=== PATIENT | male | born 1940 | race African-American/Black ===

== ENCOUNTER 2020-02-16 12:30 | Emergency (ER) | payer MEDICARE, BC ==
[~2020-02-16] VITALS: Ht 182.9 cm; Wt 73.0 kg
[2020-02-16 15:46] LABS: BASOPHILS % 0.5 % (0.0-2.0); CHLORIDE 101 mEq/L (98-107); HEMATOCRIT. 42.1 % (42.0-52.0); HEMOGLOBIN. 14.3 g/dL (14.0-18.0); LYMPHOCYTES % 20.9 % (20.0-50.0); MEAN CORPUSCULAR HEMOGLOBIN 31.9 pg (28.0-32.0); MEAN CORPUSCULAR VOLUME 94.2 fL (80.0-94.0); MEAN PLATELET VOLUME 8.5 fl (7.4-10.4); MONOCYTES % 7.5 % (2.0-8.0); NEUTROPHILS % 70.1 % (40.0-76.0); PLATELET 124 x1000/uL (130-400); RED BLOOD CELL COUNT 4.47 mill/uL (4.7-6.1); RED CELL DISTRIBUTION WIDTH 16.5 % (11.6-14.6)
[2020-02-16 15:52] LABS: PARTIAL THROMBOPLASTIN TIME 27.6 sec (23.4-31.0); PROTHROMBIN TIME 10.5 sec (9.6-11.0)
[2020-02-16 18:47] VITALS: BP 150/77
== END 2020-02-16 18:47 | disposition home or self-care (01) ==
LOC: ER 12:30
DX: R04.0 Epistaxis (principal); I10 Essential (primary) hypertension; J45.909 Unspecified asthma, uncomplicated
CPT/HCPCS: 36415; 80048; 85025; 86850; 86900; 93005; 99284

== ENCOUNTER 2020-02-29 22:19 | Emergency (ER) | payer MEDICARE, BC ==
[~2020-02-29] VITALS: Ht 182.9 cm; Wt 62.3 kg
[2020-02-29 23:43] LABS: HEMATOCRIT 39.1 % (42.0-52.0); HEMOGLOBIN 13.3 g/dL (14.0-18.0); MEAN CORPUSCULAR HEMOGLOBIN 32.7 pg (28.0-32.0); MEAN CORPUSCULAR VOLUME 96.4 fL (80.0-94.0); PLATELET 138 x1000/uL (130-400); RED BLOOD CELL COUNT 4.05 mill/uL (4.7-6.1); RED CELL DISTRIBUTION WIDTH 17.9 % (11.6-14.6)
[2020-02-29 23:53] LABS: CHLORIDE 102 mEq/L (98-107)
[2020-03-01 07:30] VITALS: BP 138/71
== END 2020-03-01 08:30 | disposition home or self-care (01) ==
LOC: ER 22:19
DX: K62.5 Hemorrhage of anus and rectum (principal); D64.9 Anemia, unspecified; R03.0 Elevated blood-pressure reading, without diagnosis of hypertension; J45.909 Unspecified asthma, uncomplicated
CPT/HCPCS: 36415; 80053; 85027; 86850; 86900; 93005; 99285

== ENCOUNTER 2021-05-17 15:49 | Inpatient (IN) | payer MEDICARE, BC ==
[~2021-05-17] VITALS: Ht 167.6 cm; Wt 49.9 kg
[2021-05-17] MEDS ORDERED: SODIUM CHLORIDE 0.9% 1,000 ML IV ONE (16:30)
[2021-05-17 17:10] LABS: BASOPHILS % 0.1 % (0.0-2.0); EOSINOPHILS % 0.5 % (0.0-5.0); HEMATOCRIT. 42.3 % (42.0-52.0); HEMOGLOBIN. 13.1 g/dL (14.0-18.0); MEAN CORPUSCULAR HEMOGLOBIN 28.4 pg (28.0-32.0); MEAN CORPUSCULAR VOLUME 91.4 fL (80.0-94.0); MEAN PLATELET VOLUME 11.2 fl (7.4-10.4); MONOCYTES % 6.4 % (2.0-8.0); PLATELET 241 x1000/uL (130-400); RED BLOOD CELL COUNT 4.63 mill/uL (4.7-6.1); RED CELL DISTRIBUTION WIDTH 18.1 % (11.6-14.6)
[2021-05-17 17:47] LABS: CLARITY URINE CLEAR (CLEAR); COLOR URINE YELLOW (YELLOW); KETONES URINE NEGATIVE (NEGATIVE); LEUKOCYTE ESTERASE URINE NEGATIVE (NEGATIVE); NITRITE URINE NEGATIVE (NEGATIVE); OCCULT BLOOD URINE 2+ (NEGATIVE); PROTEIN URINE TRACE (NEGATIVE); SPECIFIC GRAVITY URINE 1.032 (1.005-1.030); UROBILINOGEN URINE 0.2 E.U./dL (0.2-1.0)
[2021-05-17] MEDS ORDERED: CEFTRIAXONE 1 G PREMIX 50 ML IV ONE (18:00)
[2021-05-17 18:13] LABS: *AMPHETAMINES SCREEN URINE NEGATIVE (NEGATIVE); *BARBITURATES SCREEN URINE NEGATIVE (NEGATIVE); *BENZODIAZEPINES SCREEN URINE PRESUMTIVE POSITIVE (NEGATIVE); *COCAINE SCREEN URINE NEGATIVE (NEGATIVE); PHENCYCLIDINE URINE SCREEN NEGATIVE (NEGATIVE)
[2021-05-17 18:14] LABS: CANNABINOID URINE SCREEN NEGATIVE (NEGATIVE)
[2021-05-17 18:19] LABS: METHADONE URINE SCREEN NEGATIVE (NEGATIVE)
[2021-05-17 18:29] LABS: OPIATES URINE SCREEN NEGATIVE (NEGATIVE)
[2021-05-17] MEDS ORDERED: MAGNESIUM/ALUMINUM HYDROXIDE/SIMETHICONE 30ML UDC PO PRN (21:15)
[2021-05-17] MEDS ORDERED: ACETAMINOPHEN 325MG TABLET PO PRN ×2 (21:15)
[2021-05-17] MEDS ORDERED: ONDANSETRON HCL 4MG/2ML INJ IV PRN (21:15)
[2021-05-17] MEDS ORDERED: GUAIFENESIN 200MG/10ML SUGAR FREE UDC PO PRN (21:15)
[2021-05-17] MEDS ORDERED: CLONIDINE 0.1MG TABLET PO PRN (21:15)
[2021-05-17] MEDS ORDERED: DEXTROSE 50% WATER 50ML SYRINGE IV PRN (21:15)
[2021-05-17 21:18] LABS: CHLORIDE 120 mEq/L (98-107)
[2021-05-17 21:24] LABS: ETHANOL BLOOD < 10 mg/dL
[2021-05-17] MEDS ORDERED: INSULIN REGULAR (HUMULIN R) 300UNITS/3ML VIAL SUBCUT NR (22:25)
[2021-05-17] MEDS ORDERED: SODIUM CHLORIDE 0.9% 1,000 ML IV NR (22:27)
[2021-05-17] MEDS: ENOXAPARIN 40MG/0.4ML SYR SUBCUT SCH (22:59)
[2021-05-18 05:36] LABS: BASOPHILS % 0.5 % (0.0-2.0); EOSINOPHILS % 4.1 % (0.0-5.0); HEMATOCRIT. 40.6 % (42.0-52.0); HEMOGLOBIN. 13.2 g/dL (14.0-18.0); LYMPHOCYTES % 21.6 % (20.0-50.0); MEAN CORPUSCULAR HEMOGLOBIN 29.4 pg (28.0-32.0); MEAN CORPUSCULAR VOLUME 90.2 fL (80.0-94.0); MEAN PLATELET VOLUME 10.5 fl (7.4-10.4); MONOCYTES % 6.5 % (2.0-8.0); NEUTROPHILS % 67.3 % (40.0-76.0); PLATELET 228 x1000/uL (130-400); RED CELL DISTRIBUTION WIDTH 17.9 % (11.6-14.6)
[2021-05-18 05:39] LABS: CHLORIDE 127 mEq/L (98-107)
[2021-05-18 05:46] LABS: PHOSPHORUS 2.8 mg/dL (2.5-4.9)
[2021-05-18] MEDS: DEXTROSE 5% WATER 1,000 ML IV SCH (06:40)
[2021-05-18] MEDS: INSULIN LISPRO 100 UNITS/ML SUBCUT SCH ×3 (08:20→19:12)
[2021-05-18] MEDS: BLOOD SUGAR DIAGNOSTIC STRIP TEST SCH ×3 (09:08→17:49)
[2021-05-18] MEDS ORDERED: ALBUTEROL 6.7GM HFA INHALER ORI PRN (13:00)
[2021-05-18] MEDS: DEXAMETHASONE 10 MG/ML VIAL IV SCH (13:38)
[2021-05-18 17:06] LABS: C REACTIVE PROTEIN QUANT 7.1 mg/L (0.0-3.0)
[2021-05-19] MEDS: DEXTROSE 5% WATER 1,000 ML IV SCH ×3 (02:22→23:06)
[2021-05-19] MEDS: ENOXAPARIN 40MG/0.4ML SYR SUBCUT SCH ×2 (02:24→23:05)
[2021-05-19 05:10] LABS: CHLORIDE 121 mEq/L (98-107)
[2021-05-19 05:16] LABS: PHOSPHORUS 2.8 mg/dL (2.5-4.9)
[2021-05-19 06:11] LABS: BASOPHILS % 0.5 % (0.0-2.0); EOSINOPHILS % 0.6 % (0.0-5.0); HEMATOCRIT. 38.5 % (42.0-52.0); HEMOGLOBIN. 12.6 g/dL (14.0-18.0); MEAN CORPUSCULAR HEMOGLOBIN 29.1 pg (28.0-32.0); MEAN CORPUSCULAR VOLUME 88.6 fL (80.0-94.0); MEAN PLATELET VOLUME 10.8 fl (7.4-10.4); MONOCYTES % 5.3 % (2.0-8.0); NEUTROPHILS % 77.6 % (40.0-76.0); PLATELET 225 x1000/uL (130-400); RED BLOOD CELL COUNT 4.34 mill/uL (4.7-6.1); RED CELL DISTRIBUTION WIDTH 17.4 % (11.6-14.6)
[2021-05-19] MEDS: BLOOD SUGAR DIAGNOSTIC STRIP TEST SCH ×5 (09:29→21:00)
[2021-05-19] MEDS: DEXAMETHASONE 10 MG/ML VIAL IV SCH (09:30)
[2021-05-19] MEDS: INSULIN LISPRO 100 UNITS/ML SUBCUT SCH ×2 (09:35→14:08)
[2021-05-19 20:00] VITALS: BP 116/67
[2021-05-19 22:00] VITALS: BP 116/67
[2021-05-19 23:54] VITALS: BP 100/54
[2021-05-20 04:00] VITALS: BP 120/69
[2021-05-20] MEDS ORDERED: ATOR10TA69 PO (04:29)
[2021-05-20] MEDS ORDERED: FURO-152 PO (04:30)
[2021-05-20] MEDS ORDERED: FOLI-43 PO (04:30)
[2021-05-20] MEDS ORDERED: LISI20TA31 PO (04:31)
[2021-05-20] MEDS ORDERED: AMLO5TAB4 PO (04:31)
[2021-05-20] MEDS ORDERED: P20 PO (04:32)
[2021-05-20] MEDS ORDERED: BUDE6.9H INH (04:33)
[2021-05-20 06:32] LABS: BASOPHILS % 0.5 % (0.0-2.0); EOSINOPHILS % 0.8 % (0.0-5.0); HEMATOCRIT. 33.8 % (42.0-52.0); HEMOGLOBIN. 11.3 g/dL (14.0-18.0); LYMPHOCYTES % 22.4 % (20.0-50.0); MEAN CORPUSCULAR HEMOGLOBIN 29.5 pg (28.0-32.0); MEAN CORPUSCULAR VOLUME 88.7 fL (80.0-94.0); MEAN PLATELET VOLUME 11.8 fl (7.4-10.4); MONOCYTES % 6.7 % (2.0-8.0); NEUTROPHILS % 69.6 % (40.0-76.0); PLATELET 151 x1000/uL (130-400); RED BLOOD CELL COUNT 3.81 mill/uL (4.7-6.1); RED CELL DISTRIBUTION WIDTH 17.4 % (11.6-14.6)
[2021-05-20] MEDS: BLOOD SUGAR DIAGNOSTIC STRIP TEST SCH ×4 (06:42→20:49)
[2021-05-20 07:35] LABS: CHLORIDE 116 mEq/L (98-107)
[2021-05-20] MEDS: INSULIN LISPRO 100 UNITS/ML SUBCUT SCH ×4 (08:07→20:59)
[2021-05-20] MEDS: DEXTROSE 5% WATER 1,000 ML IV SCH ×2 (08:07→20:48)
[2021-05-20] MEDS: DEXAMETHASONE 10 MG/ML VIAL IV SCH ×2 (08:08→08:11)
[2021-05-20 10:45] LABS: PHOSPHORUS 2.4 mg/dL (2.5-4.9)
[2021-05-20 12:00] VITALS: BP 93/54
[2021-05-20 16:00] VITALS: BP 102/58
[2021-05-20 20:00] VITALS: BP 98/59
[2021-05-20] MEDS: ENOXAPARIN 40MG/0.4ML SYR SUBCUT SCH (20:48)
[2021-05-20] MEDS ORDERED: SODIUM CHLORIDE 0.45% 1,000 ML IV SCH (21:45)
[2021-05-21] VITALS: BP 100/57
[2021-05-21 05:51] VITALS: BP 106/46
[2021-05-21] MEDS: BLOOD SUGAR DIAGNOSTIC STRIP TEST SCH ×4 (07:40→20:27)
[2021-05-21] MEDS: INSULIN LISPRO 100 UNITS/ML SUBCUT SCH ×4 (08:10→20:26)
[2021-05-21] MEDS: DEXAMETHASONE 10 MG/ML VIAL IV SCH (09:40)
[2021-05-21 12:00] VITALS: BP 99/57
[2021-05-21 16:00] VITALS: BP 92/69
[2021-05-21 20:00] VITALS: BP 94/64
[2021-05-21] MEDS: ENOXAPARIN 40MG/0.4ML SYR SUBCUT SCH (20:26)
[2021-05-22] VITALS: BP 108/54
[2021-05-22 04:00] VITALS: BP 111/69
[2021-05-22] MEDS: BLOOD SUGAR DIAGNOSTIC STRIP TEST SCH ×4 (07:40→21:22)
[2021-05-22 08:00] VITALS: BP 115/57
[2021-05-22] MEDS: INSULIN LISPRO 100 UNITS/ML SUBCUT SCH ×4 (08:10→21:21)
[2021-05-22] MEDS: DEXAMETHASONE 10 MG/ML VIAL IV SCH (08:44)
[2021-05-22] MEDS: INSULIN GLARGINE UD 100 UNITS/ML SYR SUBCUT SCH (11:11)
[2021-05-22 12:00] VITALS: BP 100/56
[2021-05-22 16:00] VITALS: BP 100/69
[2021-05-22 20:00] VITALS: BP 135/77
[2021-05-22] MEDS: ENOXAPARIN 40MG/0.4ML SYR SUBCUT SCH (21:22)
[2021-05-23 00:17] VITALS: BP 127/67
[2021-05-23 04:00] VITALS: BP 122/63
[2021-05-23] MEDS: BLOOD SUGAR DIAGNOSTIC STRIP TEST SCH ×4 (07:40→21:37)
[2021-05-23 08:00] VITALS: BP 112/68
[2021-05-23] MEDS: INSULIN LISPRO 100 UNITS/ML SUBCUT SCH ×4 (08:10→21:00)
[2021-05-23] MEDS ORDERED: ALBU6.7H9 ORI (08:48)
[2021-05-23] MEDS ORDERED: MED4 MT (08:48)
[2021-05-23] MEDS ORDERED: LANTUSUD SUBCUT (08:48)
[2021-05-23] MEDS: DEXAMETHASONE 10 MG/ML VIAL IV SCH (09:03)
[2021-05-23 09:28] LABS: CHLORIDE 110 mEq/L (98-107)
[2021-05-23 09:36] LABS: PHOSPHORUS 2.6 mg/dL (2.5-4.9)
[2021-05-23] MEDS: INSULIN GLARGINE UD 100 UNITS/ML SYR SUBCUT SCH (11:07)
[2021-05-23 12:00] VITALS: BP 102/67
[2021-05-23 12:18] LABS: BASOPHILS % 0.1 % (0.0-2.0); EOSINOPHILS % 0.6 % (0.0-5.0); HEMATOCRIT. 31.9 % (42.0-52.0); HEMOGLOBIN. 10.6 g/dL (14.0-18.0); LYMPHOCYTES % 9.3 % (20.0-50.0); MEAN CORPUSCULAR HEMOGLOBIN 29.1 pg (28.0-32.0); MEAN CORPUSCULAR VOLUME 87.5 fL (80.0-94.0); MEAN PLATELET VOLUME 11.2 fl (7.4-10.4); MONOCYTES % 2.7 % (2.0-8.0); NEUTROPHILS % 87.3 % (40.0-76.0); PLATELET 165 x1000/uL (130-400); RED BLOOD CELL COUNT 3.64 mill/uL (4.7-6.1); RED CELL DISTRIBUTION WIDTH 17.4 % (11.6-14.6)
[2021-05-23 16:00] VITALS: BP 107/65
[2021-05-23 20:00] VITALS: BP 122/66
[2021-05-23] MEDS: ENOXAPARIN 40MG/0.4ML SYR SUBCUT SCH (21:58)
[2021-05-24] VITALS: BP 119/75
[2021-05-24 04:00] VITALS: BP 122/71
[2021-05-24] MEDS: BLOOD SUGAR DIAGNOSTIC STRIP TEST SCH ×4 (07:02→20:43)
[2021-05-24 10:52] LABS: BASOPHILS % 0.2 % (0.0-2.0); HEMATOCRIT. 34.9 % (42.0-52.0); HEMOGLOBIN. 11.8 g/dL (14.0-18.0); MEAN CORPUSCULAR HEMOGLOBIN 29.1 pg (28.0-32.0); MEAN CORPUSCULAR VOLUME 85.7 fL (80.0-94.0); MEAN PLATELET VOLUME 11.3 fl (7.4-10.4); MONOCYTES % 6.6 % (2.0-8.0); NEUTROPHILS % 69.2 % (40.0-76.0); PLATELET 162 x1000/uL (130-400); RED BLOOD CELL COUNT 4.07 mill/uL (4.7-6.1); RED CELL DISTRIBUTION WIDTH 17.5 % (11.6-14.6)
[2021-05-24] MEDS: INSULIN LISPRO 100 UNITS/ML SUBCUT SCH ×4 (11:29→20:43)
[2021-05-24] MEDS: INSULIN GLARGINE UD 100 UNITS/ML SYR SUBCUT SCH (11:29)
[2021-05-24] MEDS: DEXAMETHASONE 10 MG/ML VIAL IV SCH (11:37)
[2021-05-24 11:52] LABS: CHLORIDE 106 mEq/L (98-107)
[2021-05-24 12:00] VITALS: BP 112/63
[2021-05-24 12:04] LABS: PHOSPHORUS 2.3 mg/dL (2.5-4.9)
[2021-05-24 16:00] VITALS: BP 115/70
[2021-05-24 16:51] VITALS: BP 115/70
[2021-05-24 20:00] VITALS: BP 113/62
[2021-05-24] MEDS: ENOXAPARIN 40MG/0.4ML SYR SUBCUT SCH (20:42)
== END 2021-05-24 23:05 | DRG 871 ==
LOC: ER 15:49 → 7WST 21:04 → SUPCPDRO 21:05 → ENRESERV 05-19 19:42
PROVIDERS: ADMIT Internal Medicine; ATTEND Internal Medicine
DX: A41.89 Other specified sepsis (principal); U07.1 COVID-19; G93.41 Metabolic encephalopathy; J96.00 Acute respiratory failure, unspecified whether with hypoxia or hypercapnia; E87.0 Hyperosmolality and hypernatremia; E11.65 Type 2 diabetes mellitus with hyperglycemia; F03.90 Unspecified dementia, unspecified severity, without behavioral disturbance, psychotic disturbance, mood disturbance, and anxiety; J44.9 Chronic obstructive pulmonary disease, unspecified; R13.10 Dysphagia, unspecified; I11.0 Hypertensive heart disease with heart failure; I50.9 Heart failure, unspecified; E11.649 Type 2 diabetes mellitus with hypoglycemia without coma; Z74.01 Bed confinement status; Z93.1 Gastrostomy status; R47.89 Other speech disturbances; R82.71 Bacteriuria
CPT/HCPCS: 36415; 71045; 80048; 80053; 80305; 80307; 80320; 80329; 81003; 82010; 82140; 82962; 83605; 83735; 83880; 84100; 84132; 84443; 84484; 85025; 87186; 87426; 93005; 99291; C1893; J0696; J1100; J1650; J1815; J7030; J7070; G0480

== ENCOUNTER 2022-01-30 17:44 | Emergency (ER) | payer MEDICARE, BC ==
[~2022-01-30] VITALS: Ht 172.7 cm; Wt 57.0 kg
[~2022-01-30 17:44] MED LIST: ALBU6.7H9 ORI; AMLO5TAB4 PO; ATOR10TA69 PO; BUDE6.9H INH; FOLI-43 PO; FURO-152 PO; LANTUSUD SUBCUT; LISI20TA31 PO; MED4 MT
[2022-01-30] MEDS ORDERED: MUPI15CR11 TP (20:28)
[2022-01-30 21:09] VITALS: BP 130/68
== END 2022-01-30 23:38 ==
LOC: ER 17:44
DX: L01.00 Impetigo, unspecified (principal); I11.0 Hypertensive heart disease with heart failure; I50.9 Heart failure, unspecified; Z79.899 Other long term (current) drug therapy; Z79.4 Long term (current) use of insulin; J44.9 Chronic obstructive pulmonary disease, unspecified; E11.9 Type 2 diabetes mellitus without complications; J45.909 Unspecified asthma, uncomplicated
CPT/HCPCS: 99283